=== PATIENT | female | born 1970 | race Caucasian/White ===

== ENCOUNTER 2016-04-04 13:31 | Emergency (ER) | payer SELFPAY ==
[~2016-04-04] VITALS: Ht 167.6 cm; Wt 80.7 kg
[2016-04-04] MEDS ORDERED: IBUP-1481 PO (13:57)
[2016-04-04] MEDS ORDERED: KETOROLAC TROMETHAMINE INJ 60 MG/2 ML VIAL IM ONE ×2 (14:30→14:38)
[2016-04-04] MEDS ORDERED: ONDANSETRON 4 MG TAB.RAPDIS PO ONE (14:30)
[2016-04-04] MEDS ORDERED: ONDANSETRON 4 MG TAB.RAPDIS ONE (14:38)
[2016-04-04 15:37] LABS: KETONES,URINE Negative (NEGATIVE); LEUKOCYTE ESTERASE ,URINE Trace (NEGATIVE); PH,URINE 5.5 (5.0-8.0)
[2016-04-04 15:38] LABS: ADD UA MICROSCOPIC YES; ADD URINE CULTURE YES
[2016-04-04 16:11] VITALS: BP 132/76
== END 2016-04-04 16:12 | disposition home or self-care (01) ==
LOC: ER 13:34
DX: R07.89 Other chest pain (principal); S43.402A Unspecified sprain of left shoulder joint, initial encounter; N39.0 Urinary tract infection, site not specified; I82.409 Acute embolism and thrombosis of unspecified deep veins of unspecified lower extremity; Z90.710 Acquired absence of both cervix and uterus; Z98.890 Other specified postprocedural states; Z88.0 Allergy status to penicillin; X58.XXXA Exposure to other specified factors, initial encounter; Y93.89 Activity, other specified; Y92.89 Other specified places as the place of occurrence of the external cause; Y99.8 Other external cause status
CPT/HCPCS: 71010-TC; 81000-TC; 87086-TC; 87186-TC; A4606; Z7610